=== PATIENT | female | born 1990 | race Hispanic/Latino ===

== ENCOUNTER 2022-08-21 08:12 | Day surgery (SDC) | payer SELFPAY ==
[2022-08-21] MEDS ORDERED: PROPOFOL 20 ML ONE (11:02)
[2022-08-21] MEDS ORDERED: Ondansetron PF 4 MG/2 ML Vial ONE (11:02)
[2022-08-21] MEDS ORDERED: Dexamethasone 20 MG/5 ML VIAL ONE (11:02)
[2022-08-21] MEDS ORDERED: Lidocaine 1% PF 5 ML VIAL ONE (11:02)
[2022-08-21] MEDS ORDERED: Fentanyl 100 MCG/2 ML VIAL ONE ×2 (11:35→12:39)
[2022-08-21] MEDS ORDERED: cefTRIAXone\\ROCEPHIN 1 GM VIAL ONE (11:43)
[2022-08-21] MEDS ORDERED: Misoprostol 200 MCG TAB ONE (12:02)
[2022-08-21] MEDS ORDERED: Ibuprofen 400 MG TAB PO PRN (12:34)
[2022-08-21] MEDS ORDERED: Ketorolac Tromethamine 30 MG/ML VIAL ONE (12:39)
[2022-08-21] MEDS ORDERED: Midazolam HCl 2 mg/2 ml Vial ONE (12:52)
== END 2022-08-21 14:00 | disposition home or self-care (01) ==
LOC: CSHSDC 08:12
PROVIDERS: ATTEND Obstetrics & Gynecology
PROC: 10D17ZZ Extraction of Products of Conception, Retained, Via Natural or Artificial Opening (ICD-10-PCS; principal; 2022-08-21)
DX: O02.1 Missed abortion (principal)
CPT/HCPCS: 86850; 86900; 86901; 88305; J0696; J1100; J1885; J2250; J2405; J2704; J3010